=== PATIENT | male | born 1965 | race African-American/Black ===

== ENCOUNTER 2019-06-07 21:07 | Emergency (ER) | payer MEDICAID ==
[~2019-06-07] VITALS: Ht 170.2 cm; Wt 89.0 kg
[2019-06-07 21:13] VITALS: BP 155/88
[2019-06-07] MEDS ORDERED: ACETAMINOPHEN 325MG TABLET PO ONE (23:00)
== END 2019-06-08 02:14 | disposition left against medical advice (07) ==
LOC: EDBD → ER 21:07
DX: S27.0XXA Traumatic pneumothorax, initial encounter (principal); S22.43XA Multiple fractures of ribs, bilateral, initial encounter for closed fracture; S42.112A Displaced fracture of body of scapula, left shoulder, initial encounter for closed fracture; V49.49XA Driver injured in collision with other motor vehicles in traffic accident, initial encounter; Y93.89 Activity, other specified; Y92.410 Unspecified street and highway as the place of occurrence of the external cause; I10 Essential (primary) hypertension
CPT/HCPCS: 71250; 73030; 99284

== ENCOUNTER 2019-06-08 11:57 | Inpatient (IN) | payer MEDICAID ==
[~2019-06-08] VITALS: Ht 185.4 cm; Wt 104.8 kg
[2019-06-08 12:48] LABS: BASOPHILS % 0.5 % (0.0-2.0); EOSINOPHILS % 0.1 % (0.0-5.0); HEMATOCRIT. 42.4 % (42.0-52.0); HEMOGLOBIN. 14.3 g/dL (14.0-18.0); LYMPHOCYTES % 16.7 % (20.0-50.0); MEAN CORPUSCULAR HEMOGLOBIN 27.4 pg (28.0-32.0); MEAN CORPUSCULAR VOLUME 81.3 fL (80.0-94.0); MEAN PLATELET VOLUME 7.8 fl (7.4-10.4); MONOCYTES % 7.1 % (2.0-8.0); NEUTROPHILS % 75.6 % (40.0-76.0); PLATELET 237 x1000/uL (130-400); RED BLOOD CELL COUNT 5.21 mill/uL (4.7-6.1); RED CELL DISTRIBUTION WIDTH 15.9 % (11.6-14.6)
[2019-06-08 12:51] LABS: CHLORIDE 106 mEq/L (98-107)
[2019-06-08] MEDS ORDERED: AZITHROMYCIN 500 MG in DEXT 5% WATER 250 ML IV ONE (13:15)
[2019-06-08] MEDS ORDERED: CEFTRIAXONE 1 G PREMIX 50 ML IV ONE (13:15)
[2019-06-08 13:21] LABS: CREATINE KINASE 2448 IU/L (39-308)
[2019-06-08] MEDS ORDERED: SODIUM CHLORIDE 0.9% 1,000 ML IV ONE (13:26)
[2019-06-08] MEDS ORDERED: ONDANSETRON HCL 4MG/2ML INJ IV PRN (16:15)
[2019-06-08] MEDS ORDERED: CEFTRIAXONE 1 G PREMIX 50 ML IV SCH (16:15)
[2019-06-08] MEDS ORDERED: CLONIDINE 0.1MG TABLET PO PRN (16:15)
[2019-06-08] MEDS ORDERED: ACETAMINOPHEN 325MG TABLET PO PRN (16:15)
[2019-06-08] MEDS ORDERED: AZITHROMYCIN 500 MG in DEXT 5% WATER 250 ML IV SCH (16:15)
[2019-06-08] MEDS: HYDROCODONE/ACETAMINOPHEN 5/325MG TABLET PO PRN ×2 (16:41→21:27)
[2019-06-08] MEDS: AMLODIPINE 10MG TABLET PO SCH (16:45)
[2019-06-08] MEDS ORDERED: IPRATROPIUM/ALBUTEROL 0.5-3(2.5)MG/3ML NEB HHN PRN (17:45)
[2019-06-08] MEDS: KETOROLAC 30MG/ML VIAL IV PRN (17:59)
[2019-06-08] MEDS: IPRATROPIUM/ALBUTEROL 0.5-3(2.5)MG/3ML NEB HHN SCH (18:00)
[2019-06-08] MEDS: DEXT 5%/0.45% NACL 1000ML 1,000 ML IV SCH (18:08)
[2019-06-08 18:29] LABS: CLARITY URINE CLEAR (CLEAR); COLOR URINE YELLOW (YELLOW); KETONES URINE NEGATIVE (NEGATIVE); LEUKOCYTE ESTERASE URINE NEGATIVE (NEGATIVE); NITRITE URINE NEGATIVE (NEGATIVE); OCCULT BLOOD URINE NEGATIVE (NEGATIVE); PROTEIN URINE TRACE (NEGATIVE); SPECIFIC GRAVITY URINE 1.026 (1.005-1.030); UROBILINOGEN URINE 0.2 E.U./dL (0.2-1.0)
[2019-06-08 18:44] LABS: *AMPHETAMINES SCREEN URINE NEGATIVE (NEGATIVE); *BARBITURATES SCREEN URINE NEGATIVE (NEGATIVE)
[2019-06-08 18:45] LABS: *BENZODIAZEPINES SCREEN URINE NEGATIVE (NEGATIVE); *COCAINE SCREEN URINE NEGATIVE (NEGATIVE); CANNABINOID URINE SCREEN NEGATIVE (NEGATIVE); METHADONE URINE SCREEN NEGATIVE (NEGATIVE); OPIATES URINE SCREEN NEGATIVE (NEGATIVE); PHENCYCLIDINE URINE SCREEN NEGATIVE (NEGATIVE)
[2019-06-08 20:30] VITALS: BP 137/74
[2019-06-09] VITALS: BP 131/76
[2019-06-09] MEDS: KETOROLAC 30MG/ML VIAL IV PRN ×2 (01:50→11:19)
[2019-06-09] MEDS: IPRATROPIUM/ALBUTEROL 0.5-3(2.5)MG/3ML NEB HHN SCH ×4 (02:10→20:59)
[2019-06-09] MEDS: DEXT 5%/0.45% NACL 1000ML 1,000 ML IV SCH ×3 (03:19→18:46)
[2019-06-09 04:00] VITALS: BP 137/83
[2019-06-09 06:24] LABS: BASOPHILS % 0.2 % (0.0-2.0); EOSINOPHILS % 1.6 % (0.0-5.0); HEMATOCRIT. 37.9 % (42.0-52.0); HEMOGLOBIN. 12.8 g/dL (14.0-18.0); LYMPHOCYTES % 26.3 % (20.0-50.0); MEAN CORPUSCULAR HEMOGLOBIN 27.3 pg (28.0-32.0); MEAN PLATELET VOLUME 7.9 fl (7.4-10.4); MONOCYTES % 10.5 % (2.0-8.0); NEUTROPHILS % 61.4 % (40.0-76.0); PLATELET 199 x1000/uL (130-400); RED BLOOD CELL COUNT 4.68 mill/uL (4.7-6.1); RED CELL DISTRIBUTION WIDTH 15.4 % (11.6-14.6)
[2019-06-09 06:32] LABS: CHLORIDE 108 mEq/L (98-107)
[2019-06-09] MEDS: METFORMIN HCL 500MG TABLET PO SCH ×2 (07:05→17:17)
[2019-06-09 08:00] VITALS: BP 147/84
[2019-06-09] MEDS: AMLODIPINE 10MG TABLET PO SCH (08:46)
[2019-06-09] MEDS: HYDROCODONE/ACETAMINOPHEN 5/325MG TABLET PO PRN ×3 (08:51→20:50)
[2019-06-09 12:00] VITALS: BP 140/78
[2019-06-09] MEDS ORDERED: DEXTROSE 50% WATER 50ML SYRINGE IV PRN (13:30)
[2019-06-09] MEDS: CEFTRIAXONE 1 G PREMIX 50 ML IV SCH (14:26)
[2019-06-09 16:00] VITALS: BP 134/69
[2019-06-09] MEDS: BLOOD SUGAR DIAGNOSTIC STRIP TEST SCH ×2 (17:12→20:19)
[2019-06-09] MEDS: INSULIN LISPRO 100 UNITS/ML SUBCUT SCH ×2 (17:16→20:19)
[2019-06-09 20:00] VITALS: BP 133/91
[2019-06-10] VITALS: BP 115/75
[2019-06-10] MEDS: IPRATROPIUM/ALBUTEROL 0.5-3(2.5)MG/3ML NEB HHN SCH ×4 (01:44→21:13)
[2019-06-10] MEDS: DEXT 5%/0.45% NACL 1000ML 1,000 ML IV SCH ×3 (02:29→17:17)
[2019-06-10 04:00] VITALS: BP 136/85
[2019-06-10] MEDS: HYDROCODONE/ACETAMINOPHEN 5/325MG TABLET PO PRN ×2 (04:30→14:25)
[2019-06-10] MEDS: BLOOD SUGAR DIAGNOSTIC STRIP TEST SCH ×4 (06:13→20:47)
[2019-06-10] MEDS: INSULIN LISPRO 100 UNITS/ML SUBCUT SCH ×4 (06:16→20:48)
[2019-06-10] MEDS: METFORMIN HCL 500MG TABLET PO SCH ×2 (06:59→17:14)
[2019-06-10 07:33] LABS: BASOPHILS % 0.5 % (0.0-2.0); HEMATOCRIT. 35.6 % (42.0-52.0); LYMPHOCYTES % 22.4 % (20.0-50.0); MEAN CORPUSCULAR HEMOGLOBIN 27.4 pg (28.0-32.0); MEAN CORPUSCULAR VOLUME 81.5 fL (80.0-94.0); MONOCYTES % 9.3 % (2.0-8.0); NEUTROPHILS % 65.8 % (40.0-76.0); PLATELET 200 x1000/uL (130-400); RED BLOOD CELL COUNT 4.37 mill/uL (4.7-6.1); RED CELL DISTRIBUTION WIDTH 15.5 % (11.6-14.6)
[2019-06-10 07:46] LABS: CHLORIDE 108 mEq/L (98-107)
[2019-06-10 08:00] VITALS: BP 156/86
[2019-06-10] MEDS: AMLODIPINE 10MG TABLET PO SCH (09:16)
[2019-06-10 12:45] VITALS: BP 143/86
[2019-06-10] MEDS: CEFTRIAXONE 1 G PREMIX 50 ML IV SCH (14:25)
[2019-06-10 16:08] VITALS: BP 128/79
[2019-06-10] MEDS ORDERED: MORPHINE SULFATE 2 MG/ML CPJ (NOT FOR IM USE) IV PRN (17:00)
[2019-06-10 20:00] VITALS: BP 128/78
[2019-06-10] MEDS: KETOROLAC 30MG/ML VIAL IV PRN (20:43)
[2019-06-11] VITALS: BP 121/79
[2019-06-11] MEDS: IPRATROPIUM/ALBUTEROL 0.5-3(2.5)MG/3ML NEB HHN SCH ×3 (02:23→14:03)
[2019-06-11 04:00] VITALS: BP 137/81
[2019-06-11] MEDS: HYDROCODONE/ACETAMINOPHEN 5/325MG TABLET PO PRN ×2 (04:02→10:01)
[2019-06-11] MEDS: BLOOD SUGAR DIAGNOSTIC STRIP TEST SCH ×3 (06:33→17:23)
[2019-06-11] MEDS: INSULIN LISPRO 100 UNITS/ML SUBCUT SCH ×3 (06:38→17:15)
[2019-06-11] MEDS: METFORMIN HCL 500MG TABLET PO SCH ×2 (06:44→17:22)
[2019-06-11] MEDS: DEXT 5%/0.45% NACL 1000ML 1,000 ML IV SCH ×3 (06:44→17:23)
[2019-06-11] MEDS: AMLODIPINE 10MG TABLET PO SCH (09:00)
[2019-06-11 12:00] VITALS: BP 138/81
[2019-06-11] MEDS: CEFTRIAXONE 1 G PREMIX 50 ML IV SCH (13:06)
[2019-06-11] MEDS ORDERED: HYDR-4009 MT ×2 (13:34→20:33)
[2019-06-11] MEDS ORDERED: METF-416 MT (13:34)
[2019-06-11] MEDS ORDERED: AMLO10TA80 MT (13:34)
[2019-06-11] MEDS ORDERED: LEVO750T21 MT (13:34)
[2019-06-11] MEDS ORDERED: FUROSEMIDE 40MG/4ML VIAL IVP NR (14:00)
[2019-06-11 14:06] VITALS: BP 122/64
[2019-06-11 16:00] VITALS: BP 142/77
== END 2019-06-11 22:42 | disposition home or self-care (01) | DRG 135 ==
LOC: ER 12:09 → EDBEDREQ 14:36 → ENRESERV 19:27 → 5WST 20:59
PROVIDERS: ADMIT Internal Medicine Nephrology; ATTEND Internal Medicine Nephrology
DX: S27.0XXA Traumatic pneumothorax, initial encounter (principal); J18.9 Pneumonia, unspecified organism; M62.82 Rhabdomyolysis; S22.42XA Multiple fractures of ribs, left side, initial encounter for closed fracture; S27.321A Contusion of lung, unilateral, initial encounter; S42.112A Displaced fracture of body of scapula, left shoulder, initial encounter for closed fracture; E11.9 Type 2 diabetes mellitus without complications; I11.9 Hypertensive heart disease without heart failure; V49.40XA Driver injured in collision with unspecified motor vehicles in traffic accident, initial encounter; Y93.89 Activity, other specified; Y92.89 Other specified places as the place of occurrence of the external cause; Y99.8 Other external cause status; Z79.899 Other long term (current) drug therapy
CPT/HCPCS: 36415; 71045; 73030; 73060; 80048; 80053; 80305; 80320; 81003; 82550; 82962; 83036; 83880; 84484; 85025; 93005; 93306; 94640; 97116; 97163; 97166; 97535; 99285; A4565; J0456; J0696; J1815; J1885; J1940; J7030; J7060; G0480